=== PATIENT | male | born 1970 | race Caucasian/White ===

== ENCOUNTER → 2017-09-11 | Outpatient (CLI) | payer OTHER | END | disposition home or self-care (01) | LOC: CFH 06:42 | PROVIDERS: ATTEND Family Medicine | DX: M25.511 Pain in right shoulder (principal) ==

== ENCOUNTER 2019-01-19 14:01 | Emergency (ER) | payer BC, OTHER ==
[~2019-01-19] VITALS: Ht 177.8 cm; Wt 85.0 kg
[2019-01-19 14:04] VITALS: BP 144/94
== END 2019-01-19 14:53 | disposition home or self-care (01) ==
LOC: ED 14:47
DX: S40.012A Contusion of left shoulder, initial encounter (principal); S39.012A Strain of muscle, fascia and tendon of lower back, initial encounter; S90.02XA Contusion of left ankle, initial encounter; V49.49XA Driver injured in collision with other motor vehicles in traffic accident, initial encounter; Y93.89 Activity, other specified; Y92.89 Other specified places as the place of occurrence of the external cause; Y99.8 Other external cause status
CPT/HCPCS: 72110; 99283

== ENCOUNTER 2019-04-18 18:51 | Emergency (ER) | payer BC, OTHER ==
[~2019-04-18] VITALS: Ht 177.8 cm; Wt 83.6 kg
[2019-04-18 20:15] VITALS: BP 127/74
== END 2019-04-18 20:17 | disposition home or self-care (01) ==
LOC: ED 19:19
DX: S62.316A Displaced fracture of base of fifth metacarpal bone, right hand, initial encounter for closed fracture (principal); W22.8XXA Striking against or struck by other objects, initial encounter; Y93.89 Activity, other specified; Y92.89 Other specified places as the place of occurrence of the external cause; Y99.8 Other external cause status
CPT/HCPCS: 29125; 73130; 96372; 99283; J1885